=== PATIENT | female | born 1975 | race Caucasian/White ===

== ENCOUNTER → 2017-01-22 | Outpatient (CLI) | payer OTHER ==
[~2017-01-22] MED LIST: BIFI4CAP PO; IRON PO; MULT-658 PO; OMEP20TA62 PO; [UNRECOGNIZED DRUG - OTHER] PO
[2017-01-22 18:44] LABS: HEMOGLOBIN 14.8 g/dL (11.7-16.4)
[2017-01-22 18:56] LABS: ASPARTATE AMINO TRANSFERASE 15 U/L (15-37); BLOOD UREA NITROGEN 16 mg/dL (7-18)
== END | disposition home or self-care (01) ==
LOC: RAD 15:57
PROVIDERS: ATTEND Nurse Practitioner Family
DX: N20.0 Calculus of kidney (principal); K76.0 Fatty (change of) liver, not elsewhere classified
CPT/HCPCS: 36415; 74176; 80053; 80061; 85025

== ENCOUNTER 2018-05-29 21:32 | Emergency (ER) | payer OTHER ==
[~2018-05-29] VITALS: Ht 175.3 cm; Wt 150.0 kg
[2018-05-29] MEDS ORDERED: ONDANSETRON 2MG/ML, 2ML IVPush ONE (22:30)
[2018-05-29] MEDS ORDERED: MORPHINE SULFATE 4 MG/ML, 1ML IVPush PRN (22:30)
[2018-05-29] MEDS ORDERED: KETOROLAC 30 MG/1 ML IVPush ONE (22:30)
[2018-05-29] MEDS ORDERED: ONDANSETRON 2MG/ML, 2ML ONE (22:45)
[2018-05-29] MEDS ORDERED: MORPHINE SULFATE 4 MG/ML, 1ML ONE (22:45)
[2018-05-29 22:49] LABS: BASOPHILS # (AUTO) 0.03 x10^3/uL (0-0.1); BASOPHILS % (AUTO) 1 % (0-1); EOSINOPHILS # (AUTO) 0.14 x10^3/uL (0-0.4); EOSINOPHILS % (AUTO) 2 % (1-7); LYMPHOCYTES # (AUTO) 1.76 x10^3/uL (1-3.4); LYMPHOCYTES % (AUTO) 24 % (22-44); MD NO; MEAN CORPUSCULAR HEMOGLOBIN 28.4 pg (27.0-34.8); MEAN CORPUSCULAR HGB CONC 34.5 g/dL (32.4-35.8); MEAN CORPUSCULAR VOLUME 82.5 fL (80-100); MEAN PLATELET VOLUME 8.9 fL (7.4-10.4); MONOCYTES # (AUTO) 0.35 x10^3/uL (0.2-0.8); MONOCYTES % (AUTO) 5 % (2-9); NEUTROPHILS % (AUTO) 69 % (42-75); PLATELET COUNT 180 x10^3/uL (130-400); RED BLOOD COUNT 4.81 x10^6/uL (3.82-5.3); RED CELL DISTRIBUTION WIDTH 13.6 % (9.6-15.2)
[2018-05-29 22:57] LABS: MICROSCOPIC INDICATED
[2018-05-29 23:00] LABS: ALANINE AMINOTRANSFERASE 26 U/L (12-78); ALBUMIN 2.9 g/dL (3.4-5.0); ANION GAP 8 mmol/L (5-15); CALCIUM 8.4 mg/dL (8.5-10.1); CHLORIDE 107 mmol/L (98-107); CREATININE 0.79 mg/dL (0.55-1.02)
[2018-05-29 23:05] LABS: ALKALINE PHOSPHATASE 80 U/L (45-117); BILIRUBIN,TOTAL 0.3 mg/dL (0.2-1.0); TOTAL PROTEIN 6.4 g/dL (6.4-8.2)
[2018-05-29 23:11] LABS: CULTURE INDICATED? YES
[2018-05-30 00:11] VITALS: BP 104/52
[2018-05-30] MEDS ORDERED: TAMSULOSIN 0.4 MG CAP.ER.24H PO ONE (01:00)
[2018-05-30] MEDS ORDERED: TAMSULOSIN 0.4 MG CAP.ER.24H ONE (01:03)
== END 2018-05-30 01:24 | disposition home or self-care (01) ==
LOC: ED 23:59
DX: N20.0 Calculus of kidney (principal); N23 Unspecified renal colic; Z87.891 Personal history of nicotine dependence; Z88.6 Allergy status to analgesic agent
CPT/HCPCS: 36415; 74176; 80053; 81001; 84703; 85025; 87077; 87086; 87186; 96374; 96375; 99285; J2405

== ENCOUNTER 2018-05-30 16:58 | Emergency (ER) | payer OTHER ==
[~2018-05-30] VITALS: Ht 175.3 cm; Wt 164.7 kg
[2018-05-30] MEDS ORDERED: SODIUM CHLORIDE FLUSH 10ML SYR IVF ONE (17:30)
[2018-05-30] MEDS ORDERED: MORPHINE SULFATE 4 MG/ML, 1ML IVPush PRN (17:30)
[2018-05-30] MEDS ORDERED: ONDANSETRON 2MG/ML, 2ML IVPush ONE (17:30)
[2018-05-30] MEDS ORDERED: ONDANSETRON 2MG/ML, 2ML ONE (17:35)
[2018-05-30] MEDS ORDERED: MORPHINE SULFATE 4 MG/ML, 1ML ONE (17:35)
[2018-05-30 17:39] LABS: MICROSCOPIC INDICATED
[2018-05-30 17:40] LABS: CULTURE INDICATED? NO
[2018-05-30] MEDS ORDERED: OXYcodone/APAP 5/325MG TABLET PO ONE (18:30)
[2018-05-30] MEDS ORDERED: OXYcodone/APAP 5/325MG TABLET ONE (18:43)
[2018-05-30 18:46] VITALS: BP 139/84
[2018-05-30] MEDS ORDERED: KETOROLAC 30 MG/1 ML IVPush ONE (19:00)
[2018-05-30] MEDS ORDERED: KETOROLAC 30 MG/1 ML ONE (19:28)
[2018-05-30] MEDS ORDERED: KETOROLAC 30 MG/1 ML IM ONE (19:30)
== END 2018-05-30 19:40 | disposition home or self-care (01) ==
LOC: ED 18:43
DX: N20.2 Calculus of kidney with calculus of ureter (principal)
CPT/HCPCS: 76770; 81001; 96372; 96374; 99285; J1885; J2405